=== PATIENT | female | born 1995 | race Caucasian/White ===

== ENCOUNTER 2023-12-05 08:48 | Emergency (ER) | payer MEDICAID ==
[~2023-12-05] VITALS: Ht 170.2 cm; Wt 73.7 kg
[2023-12-05 09:02] VITALS: BP 130/88; PULSE 114; RESP 18; TEMP 97.5; O2SAT 99
== END 2023-12-05 15:33 | disposition home or self-care (01) ==
LOC: ER 08:49
DX: M79.602 Pain in left arm (principal); M79.605 Pain in left leg
CPT/HCPCS: 99281

== ENCOUNTER 2023-12-24 14:50 | Emergency (ER) | payer MEDICAID ==
[~2023-12-24] VITALS: Ht 170.2 cm; Wt 61.3 kg
[2023-12-24 14:58] VITALS: BP 101/76; PULSE 89; O2SAT 96
[2023-12-24] MEDS: TETanus/Pertussis (Acell)/Diphther VAC/PF (Tdap-Adult) 0.5ml syringe IMVAC ONE (17:06)
[2023-12-24] MEDS ORDERED: ketorolac trometh inj. 60 MG/2 ML VIAL IM ONE (17:25)
[2023-12-24] MEDS ORDERED: CEPH-585 PO (17:28)
[2023-12-24] MEDS ORDERED: HYDR-3965 PO (17:39)
[2023-12-24] MEDS: ketorolac tromethamine 15mg/ml inj. IM ONE (17:52)
[2023-12-24 18:08] VITALS: RESP 17; TEMP 98.5
== END 2023-12-24 18:10 | disposition home or self-care (01) ==
LOC: ER 14:50
DX: S90.852A Superficial foreign body, left foot, initial encounter (principal); W22.09XA Striking against other stationary object, initial encounter; Y93.89 Activity, other specified; Y92.89 Other specified places as the place of occurrence of the external cause; Y99.8 Other external cause status
CPT/HCPCS: 73630; 90471; 90715; 96372; 99284; J1885; 99283

== ENCOUNTER 2024-01-31 16:44 | Emergency (ER) | payer MEDICAID ==
[~2024-01-31] VITALS: Ht 170.2 cm; Wt 68.8 kg
[2024-01-31 16:48] VITALS: TEMP 97.8
[2024-01-31 17:46] LABS: BASOPHILS % (AUTO) 0.8 % (0-1); EOSINOPHILS # (AUTO) 0.1 X10'3 (0-0.9); EOSINOPHILS % (AUTO) 1.2 % (0-6); HEMATOCRIT 42.3 % (35.0-45.0); HEMOGLOBIN 13.9 g/dl (12.0-16.0); LYMPHOCYTES # (AUTO) 1.2 X10'3 (1.1-4.8); LYMPHOCYTES % (AUTO) 28.7 % (21-51); MEAN CORPUSCULAR HEMOGLOBIN 30.1 PG (27.0-31.0); MEAN CORPUSCULAR HGB CONC 32.9 g/dL (33.0-36.5); MEAN CORPUSCULAR VOLUME 91.5 FL (78-98); MONOCYTES # (AUTO) 0.3 X10'3 (0-0.9); MONOCYTES % (AUTO) 7.5 % (2-12); NEUTROPHILS # (AUTO) 2.6 X10'3 (1.8-7.7); NEUTROPHILS % (AUTO) 61.8 % (42-75); PLATELET COUNT 301 X10'3 (140-440); RED BLOOD COUNT 4.63 X10'6 (4.20-5.60); RED CELL DISTRIBUTION WIDTH 14.3 % (11.5-14.5); WHITE BLOOD COUNT 4.2 X10'3 (4.5-11.0)
[2024-01-31 17:52] LABS: ALANINE AMINOTRANSFERASE 29 U/L (12-78); ALBUMIN 3.5 G/DL (3.4-5.0); ALBUMIN/GLOBULIN RATIO 0.8 (1.1-1.5); ALKALINE PHOSPHATASE 49 IU/L (46-116); ANION GAP 9 (8-16); ASPARTATE AMINO TRANSFERASE 24 U/L (10-37); BILIRUBIN,TOTAL 0.2 MG/DL (0.1-1.0); BLOOD UREA NITROGEN 8 MG/DL (7-18); CALCIUM 8.7 MG/DL (8.5-10.1); CHLORIDE 105 MMOL/L (99-107); GLUCOSE 109 MG/DL (70-104); LIPASE 40 U/L (16-77); SODIUM 138 MMOL/L (135-145); TOTAL CARBON DIOXIDE 23.9 MMOL/L (24-32); TOTAL PROTEIN 7.9 G/DL (6.4-8.2); eCRCL 100 ML/MIN; eGFR 84 ML/MIN
[2024-01-31] MEDS ORDERED: METR-159 PO (18:02)
[2024-01-31] MEDS: metroNIDAZOLE 500mg tablet PO ONE (18:11)
[2024-01-31 18:15] VITALS: BP 117/88; PULSE 78; RESP 15; O2SAT 98
[2024-02-01 10:21] LABS: C DIFF ANTIGEN NEGATIVE (NEGATIVE); C DIFF SPECIMEN=DIARRHEA? ACCEPTABLE; C DIFFICILE TOXINS A&B NEGATIVE (Neg)
== END 2024-01-31 18:12 | disposition home or self-care (01) ==
LOC: ER 16:44
DX: R19.7 Diarrhea, unspecified (principal); R10.84 Generalized abdominal pain; R50.9 Fever, unspecified
CPT/HCPCS: 36415; 80053; 83690; 85025; 87045; 87046; 87324; 87449; 99283